=== PATIENT | male | born 1950 | race Caucasian/White ===

== ENCOUNTER 2017-05-02 12:31 | Day surgery (SDC) | payer MEDICARE, OTHER ==
[~2017-05-02] VITALS: Ht 172.7 cm; Wt 96.2 kg
--- NOTE | ~2017-05-02 | OR ---
PATIENT'S NAME: KORTNEY SANTOS [facility] AGE: 66 Y [address] ROOM: [place] [address] LOCATION: [facility] [place] ADMIT DATE: 05/02/2017 OR/Procedure Report DISCHARGE DATE: FAMILY PHYSICIAN: Juan Francisco Ames DO ATTENDING PHYSICIAN: Nicola Johnson SURGEON: Nicola Johnson MD INDUSTRIAL SEAMSTRESS: DATE OF PROCEDURE: 05/02/2017 PREOPERATIVE DIAGNOSIS: BPH with urinary retention. POSTOPERATIVE DIAGNOSIS: BPH with urinary retention. PROCEDURE PERFORMED: Cystoscopy and transurethral resection of the prostate. ANESTHESIA: Spinal. COMPLICATIONS: None. INDICATION FOR PROCEDURE: The patient is a 66-year-old male with prostatic enlargement and secondary urinary retention requiring Gaspar catheterization. DETAILS OF PROCEDURE: After informed consent was obtained, the patient was taken to the operating room. A spinal anesthetic was applied. He was placed in the dorsal lithotomy position. The groin area was prepped and draped in normal sterile fashion. The resectoscope sheath was introduced into the urethra and bladder. The resectoscope was then introduced. Resection was begun at his enlarged median lobe, on the floor of the prostate to the level of the verumontanum. Following this, the lateral lobes were resected. The patient had numerous arterial bleeders which I carefully fulgurated. I then continued resection on the lateral tissue. Finally, anterior tissue was hanging down, was then resected. The bladder was empty of chips and further fulguration was achieved. I continued resecting down to crossing fibers. At the end the procedure, the patient had excellent voiding channel. A 24-Hebrew 3-way Gaspar catheter was placed on traction. The patient tolerated his procedure well and was transferred to the recovery room in good condition. MD MADELIN SPENCER/modl PATIENT'S NAME: KORTNEY SANTOS [facility] AGE: 66 Y [address] ROOM: [place] [address] LOCATION: [facility] [place] ADMIT DATE: 05/02/2017 OR/Procedure Report DISCHARGE DATE: FAMILY PHYSICIAN: Juan Francisco Ames DO ATTENDING PHYSICIAN: Nicola Johnson /[id number] CC: Juan Francisco Ames DO d: 05/02/17 1900 t: 05/16/17 1157, OPERATIVE SUMMARY
[~2017-05-02 12:31] MED LIST: ADVAIR 500-501 EACH INH; DELTASONE10 MG PO; DUONEB INH; FLOMAX0.4 MG PO; K-TAB 10MEQ10 MEQ PO; LASIX20 MG PO; LOTREL 10-20 M1 EACH PO; OXYGEN M-15; PROVENTIL OR V6.7 GM INH; SINGULAIR10 MG PO
[2017-05-02 14:48] LABS: ALBUMIN 3.2 gm/dL (3.5-5.0); ALK PHOS 103 IU/L (33-138); ALT 32 IU/L (12-78); AST 17 IU/L (10-40); BLOOD UREA NITROGEN 13 mg/dL (6-24); CALCIUM 8.7 mg/dL (8.5-10.5); CHLORIDE 98 mMol/L (96-110); CO2 28 mMol/L (22-32); CREATININE 0.6 mg/dL (0.6-1.3); SODIUM 133 mMol/L (135-145); TOTAL BILIRUBIN 0.5 mg/dL (0.0-1.5); TOTAL PROTEIN 6.1 g/dL (6.0-8.4)
--- NOTE | 2017-05-03 03:50 | NUR ---
Significant Event: pt arrived from PACU at 1845. TURP for Dr Johnson. Bedrest. Gaspar with CBI running slow. Advanced to regular diet. States pain tolerable most of shift, 1 tab NORCO gave at 0230. Post op vitals stable. On 4L O2 per home routine. Lung sounds are coarse with wheeze noted. C/O feeling SOB, RT notified for PRN breathing tx. IV to R hand saline locked. Follow up: Probable discharge today
[2017-05-03 06:03] LABS: BASOPHIL % 0.5 %; EOSINOPHIL # 0.1 K/uL (0.0-0.5); EOSINOPHIL % 1.6 %; HEMOGLOBIN 11.6 g/dL (11.0-16.0); IMMATURE GRANULOCYTE # 0.3 K/uL (0.0-0.3); IMMATURE GRANULOCYTE % 4.2 %; LYMPHOCYTE # 1.3 K/uL (0.8-4.0); LYMPHOCYTE % 16.6 %; MCH 32.6 pg (27.0-34.0); MCHC 34.1 gm/dL (32.0-36.5); MCV 95.5 fl (83.0-98.0); MONOCYTE # 1.3 K/uL (0.0-1.0); MONOCYTE % 16.8 %; MPV 7.6 fl (9.4-12.4); NEUTROPHIL # (ANC) 4.8 K/uL (1.4-9.0); NEUTROPHIL % 60.3 %; NRBC % 0 /100WBC (0-0.00); PLATELET COUNT 236 K/uL (150-450); RBC 3.56 M/uL (3.50-5.50); RDW-CV 13.2 % (11.9-14.6); WBC 7.9 K/uL (4.0-11.0)
[2017-05-03 06:19] LABS: ALBUMIN 3.1 gm/dL (3.5-5.0); ANION GAP 10.3 (10.0-19.0); BLOOD UREA NITROGEN 16 mg/dL (6-24); CALCIUM 8.9 mg/dL (8.5-10.5); CHLORIDE 99 mMol/L (96-110); CO2 28 mMol/L (22-32); CREATININE 0.7 mg/dL (0.6-1.3); PHOSPHORUS 3.8 mg/dL (2.5-4.9); POTASSIUM 4.3 mMol/L (3.7-5.1); SODIUM 133 mMol/L (135-145)
[2017-05-03] MEDS ORDERED: BACTRIM DS1 TAB PO (09:08)
[2017-05-03] MEDS ORDERED: TYLENOL WITH C1 EACH PO (09:09)
[2017-05-03] MEDS ORDERED: NEOSPORIN1 PKT TOP (09:22)
--- NOTE | 2017-05-03 10:35 | NUR ---
DISCHARGE: D: ORDERS RECEIVED FOR THE PATIENT TO BE DISCHARGED TO HOME TODAY WITH . I: DISMISSAL INSTRUCTIONS WERE PREPARED AND REVIEWED WITH THE PATIENT AND HIS VIRTUALLY. THE FOLLOWING INFORMATION WAS DISCUSSED INCLUDING [employer]RAMES TEACHING SHEETS PROVIDED: TURP-HOME RECOVERY, TURP, BACTRIM DS, NEOSPORIN, TYLENOL WITH CODEINE AND PREVENTING DVT. REVIEWED NEW PRESCRIPTIONS, SIDE EFFECTS AND THAT THEY NEED TO TAKE THEM TO THE PHARMACY OF THERE CHOICE TO BE FILLED. R: THE PATIENT AND HIS BOTH VERBALIZED UNDERSTANDING OF THE DISMISSAL EDUCATION AT THE TIME OF TEACHING WITH NO FURTHER QUESTIONS. P: THE ABOVE INFORMATION WAS SHARED WITH THE PRIMARY NURSE AND THE CHARGE NURSE THAT THE PATIENT'S DISMISSAL EDUCATION WAS COMPLETED. THE PATIENT IS READY FOR DISCHARGE TO THE FRONT DOOR VIA WHEEL CHAIR BY NURSING STAFF.
--- NOTE | 2017-05-03 10:35 | NUR ---
Significant Event: Patient up and ambulated. Urine remained a light pink/peach color. Patient ate breakfast and drank a pop and some water with meds. Patient wanting a leg bag. Reviewed leg bag teaching and night drain bag teaching with patient. Patient stated he had had to go home with a catheter before and was familiar with things. Patient seemed knowledgeable with changing from night drain bag to leg bag and back. Denied questions. Virtual nurse reviewed dismissal orders with patient. here to drive patient home. Patient taken with his oxygen tank in a wheel chair by NELY down to the revolving doors where was waiting with vehicle to drive patient home. Follow up: Continue to monitor.
== END 2017-05-03 10:35 | disposition disaster alternative care site (69) ==
LOC: GMSU 12:31 → GSDC 12:31 → GPOC 13:00 → GSDC 05-03 10:35
PROVIDERS: Nurse Anesthetist, Certified Registered; Urology
PROC: 0VT08ZZ Resection of Prostate, Via Natural or Artificial Opening Endoscopic (ICD-10-PCS; principal; 2017-05-02)
DX: N40.1 Benign prostatic hyperplasia with lower urinary tract symptoms (principal); R33.8 Other retention of urine; J45.909 Unspecified asthma, uncomplicated; J44.9 Chronic obstructive pulmonary disease, unspecified; I11.0 Hypertensive heart disease with heart failure; I50.9 Heart failure, unspecified; G47.33 Obstructive sleep apnea (adult) (pediatric); Z87.891 Personal history of nicotine dependence; Z79.899 Other long term (current) drug therapy
CPT/HCPCS: J1956; J2001; J7120; J7512